=== PATIENT | female | born 2000 | race African-American/Black ===

== ENCOUNTER 2024-05-02 20:41 | Emergency (ER) | payer OTHER | END 2024-05-02 21:19 | LOC: CSHERS 20:41 | DX: Z53.21 Procedure and treatment not carried out due to patient leaving prior to being seen by health care provider (principal) ==

== ENCOUNTER 2025-05-20 15:58 | Emergency (ER) | payer MEDICAID, OTHER ==
[2025-05-20 17:30] LABS: #Basophils Less than 0.03 10x3/uL (0.0-0.2); #Eosinophils 0.15 10x3/uL (0.0-0.5); #Monocytes 0.73 10x3/uL (0.0-1.1); #Neutrophils 5.58 10x3/uL (1.5-8.4); %Basophils 0.2 % (0.0-2.0); %Eosinophils 1.8 % (0.0-6.0); %Lymphocytes 21.4 % (18.0-47.0); %Monocytes 8.8 % (0.0-10.0); %Neutrophils 67.1 % (40.0-75.0); Hematocrit 35.8 % (34.9-44.5); Hemoglobin 11.2 g/dL (12.0-15.5); Mean Corpuscular Hemoglobin 24.2 pg (27.0-33.0); Mean Corpuscular Volume 77.3 fL (81.6-98.3); Platelet Count 284 10x3/uL (150-450); Red Blood Cell (RBC) Count 4.63 10x6/uL (3.90-5.03); White Blood Cell (WBC) Count 8.32 10x3/uL (3.5-10.5)
[2025-05-20 17:35] LABS: Glucose, Urine (Dipstick) Normal (Negative); Leukocyte Negative (Negative); Protein, Urine (Dipstick) 30 mg/dl (Neg-Trace); Specific Gravity, Urine 1.030 (1.005-1.030)
[2025-05-20 17:46] LABS: Bacteria/HPF 1+ HPF (None Seen); CAUTI Indications for Culture Pelvic or flank pain; Mucous/LPF 1+ LPF (<2+); RBC/HPF None Seen HPF (0-3); WBC/HPF None Seen HPF (0-3)
[2025-05-20 17:47] LABS: Urine Culture Reflex No No
[2025-05-20 17:59] LABS: ALT (SGPT) 24 U/L (Less than 34); AST (SGOT) 31 U/L (11-34); Albumin 3.7 g/dL (3.1-4.5); Alkaline Phosphatase 42 U/L (40-110); Anion Gap 10 mmol/L (10-20); BUN (Urea Nitrogen) 7 mg/dL (7.0-18.7); Bilirubin, Total 0.2 mg/dL (0.3-1.2); Calc. Creatinine Clearance 0 mL/min (70-130); Calcium 9.6 mg/dL (7.8-10.44); Carbon Dioxide 25 mmol/L (22-29); Chloride 105 mmol/L (98-107); Globulin 3.7 g/dL (2.4-3.5); Glucose 86 mg/dL (70-105); Potassium 4.3 mmol/L (3.5-5.1); Sodium 136 mmol/L (136-145)
[2025-05-21 14:11] LABS: Chlamydia by PCR, Vaginal Swab Not Detected (NotDetected); GC by PCR, Vaginal Swab Not Detected (NotDetected)
== END 2025-05-20 20:38 | disposition home or self-care (01) ==
LOC: CSHERS 15:58
DX: O99.891 Other specified diseases and conditions complicating pregnancy (principal); N76.0 Acute vaginitis; B96.89 Other specified bacterial agents as the cause of diseases classified elsewhere; R10.2 Pelvic and perineal pain; K59.00 Constipation, unspecified; O10.912 Unspecified pre-existing hypertension complicating pregnancy, second trimester; Z3A.15 15 weeks gestation of pregnancy
CPT/HCPCS: 36415; 76815; 80053; 81001; 84702; 85025; 87081; 87086; 87428; 87430; 87480; 87491; 87510; 87591; 87660; 99284

== ENCOUNTER 2025-07-10 19:21 | Observation (INO) | payer MEDICAID, OTHER ==
[2025-07-10 21:32] VITALS: BMI 46.4
[2025-07-11] MEDS: Calcium Carbonate 500 MG ChewTAB PO PRN (06:47)
[2025-07-11] MEDS ORDERED: Acetaminophen 325 MG TAB PO PRN (09:36)
[2025-07-11 10:16] LABS: #Basophils 0.03 10x3/uL (0.0-0.2); #Eosinophils 0.07 10x3/uL (0.0-0.5); #Monocytes 0.75 10x3/uL (0.0-1.1); #Neutrophils 6.94 10x3/uL (1.5-8.4); %Basophils 0.3 % (0.0-2.0); %Eosinophils 0.7 % (0.0-6.0); %Lymphocytes 18.6 % (18.0-47.0); %Monocytes 7.7 % (0.0-10.0); %Neutrophils 71.7 % (40.0-75.0); Hematocrit 36.3 % (34.9-44.5); Hemoglobin 11.3 g/dL (12.0-15.5); Mean Corpuscular Hemoglobin 24.5 pg (27.0-33.0); Mean Corpuscular Volume 78.7 fL (81.6-98.3); Platelet Count 297 10x3/uL (150-450); Red Blood Cell (RBC) Count 4.61 10x6/uL (3.90-5.03); White Blood Cell (WBC) Count 9.69 10x3/uL (3.5-10.5)
[2025-07-11 10:29] LABS: Glucose, Urine (Dipstick) Normal (Negative); Leukocyte Negative (Negative); Protein, Urine (Dipstick) Negative (Neg-Trace); Specific Gravity, Urine 1.010 (1.005-1.030)
[2025-07-11 10:32] LABS: ALT (SGPT) 16 U/L (Less than 34); AST (SGOT) 20 U/L (11-34); Albumin 3.2 g/dL (3.1-4.5); Alkaline Phosphatase 57 U/L (40-110); Anion Gap 12 mmol/L (10-20); BUN (Urea Nitrogen) 7 mg/dL (7.0-18.7); Bilirubin, Total 0.2 mg/dL (0.3-1.2); Calc. Creatinine Clearance 248 mL/min (70-130); Calcium 8.9 mg/dL (7.8-10.44); Carbon Dioxide 23 mmol/L (22-29); Chloride 105 mmol/L (98-107); Globulin 3.8 g/dL (2.4-3.5); Glucose 96 mg/dL (70-105); Potassium 3.7 mmol/L (3.5-5.1); Sodium 136 mmol/L (136-145)
[2025-07-11 10:59] LABS: Bacteria/HPF Rare-Few HPF (None Seen); CAUTI Indications for Culture Dysuria,urgency,freq; Protein, Urine Random Quant Less than 10 mg/dL (1-14); RBC/HPF None Seen HPF (0-3); WBC/HPF 0-3 HPF (0-3)
[2025-07-11 11:01] LABS: Urine Culture Reflex No No
== END 2025-07-11 12:25 | disposition home or self-care (01) ==
LOC: CSHLD/OP 19:21 → EEVIPCON 21:04 → INTOOBSV 21:04 → CSHLD 21:04
PROVIDERS: ADMIT Student in an Organized Health Care Education/Training Program; ATTEND Student in an Organized Health Care Education/Training Program
DX: O36.8120 Decreased fetal movements, second trimester, not applicable or unspecified (principal); O99.891 Other specified diseases and conditions complicating pregnancy; R51.9 Headache, unspecified; R11.0 Nausea; O10.912 Unspecified pre-existing hypertension complicating pregnancy, second trimester; Z3A.22 22 weeks gestation of pregnancy; Z79.82 Long term (current) use of aspirin; Z79.899 Other long term (current) drug therapy
CPT/HCPCS: 36415; 80053; 81001; 82570; 84156; 85025; G0378

== ENCOUNTER 2025-07-21 09:51 | Inpatient (IN) | payer MEDICAID, OTHER ==
[2025-07-21 10:12] VITALS: BMI 48.2
[2025-07-21] MEDS ORDERED: Methylergonovine 0.2 MG/ML VIAL IM PRN ×2 (10:22→11:15)
[2025-07-21] MEDS ORDERED: Ondansetron PF 4 MG/2 ML Vial IVP PRN ×2 (10:22→11:15)
[2025-07-21] MEDS ORDERED: Acetaminophen 500 MG TAB PO PRN (10:22)
[2025-07-21] MEDS ORDERED: hydrALAZINE 20 MG/ML VIAL SLOW IVP PRN ×2 (10:22→11:15)
[2025-07-21] MEDS ORDERED: Carboprost 250 MCG/ML AMP IM PRN (10:22)
[2025-07-21] MEDS ORDERED: Tranexamic Acid 1,000 MG/10 ML VIAL IVP PRN (10:22)
[2025-07-21] MEDS ORDERED: Diphenoxylate HCl/Atropine Tablet PO PRN ×2 (10:22)
[2025-07-21] MEDS ORDERED: Bicitra 30 ML UDCUP PO PRN (10:22)
[2025-07-21] MEDS ORDERED: Famotidine/PF 20 mg/2ml Vial SLOW IVP PRN (10:22)
[2025-07-21] MEDS ORDERED: Oxytocin 30 units/NS 500 ML 500 ML IV SCH ×2 (10:30→11:15)
[2025-07-21 10:43] LABS: Hematocrit 35.1 % (34.9-44.5); Hemoglobin 11.1 g/dL (12.0-15.5); Mean Corpuscular Hemoglobin 24.8 pg (27.0-33.0); Mean Corpuscular Volume 78.3 fL (81.6-98.3); Platelet Count 320 10x3/uL (150-450); Red Blood Cell (RBC) Count 4.48 10x6/uL (3.90-5.03); White Blood Cell (WBC) Count 11.60 10x3/uL (3.5-10.5)
[2025-07-21] MEDS ORDERED: Methylergonovine 0.2 MG TAB PO PRN (11:15)
[2025-07-21] MEDS ORDERED: Lanolin Ointment 7 GM TUBE TOP PRN (11:15)
[2025-07-21] MEDS ORDERED: HYDROcodone/Acetaminophen 5/325 mg Tablet PO PRN (11:15)
[2025-07-21] MEDS ORDERED: diphenhydrAMINE 25 MG CAP PO PRN ×2 (11:15→11:18)
[2025-07-21 11:18] LABS: Analyzer IN Cardio CS NICU; RapidComm Collect By OR Nurse; pH (Cord, venous) 7.333 (7.250-7.350)
[2025-07-21] MEDS ORDERED: diphenhydrAMINE 50 MG/ML VIAL IM PRN (11:18)
[2025-07-21] MEDS ORDERED: diphenhydrAMINE 50 MG/ML VIAL IVP PRN (11:18)
[2025-07-21] MEDS ORDERED: Communication Order-Pharmacy FS PRN (11:30)
[2025-07-21 11:52] LABS: Syphilis Antibody Index 0.20 S/CO (<1.00 Non-Reactive)
[2025-07-21 11:54] LABS: Hep B Surf Ag - L&D Non-Reactive S/CO (NonReactive)
[2025-07-21] MEDS: HYDROmorphone HCl/0.9% NaCl/PF 30 ML IV SCH (12:10)
[2025-07-21] MEDS: Rocuronium Bromide 10 MG/ML (10ML VIAL) ONE (14:45)
[2025-07-21] MEDS: PROPOFOL 20 ML ONE (14:45)
[2025-07-21] MEDS: CEFAZOLIN 2 GM VIAL ONE (14:45)
[2025-07-21] MEDS: Lidocaine 1% PF 5 ML VIAL ONE (14:45)
[2025-07-21] MEDS: Oxytocin 10 UNITS/ML VIAL ONE (14:45)
[2025-07-21] MEDS: SUCCINYLCHOLINE/SOD CL,ISO/PF 200 MG/10 ML SYRINGE FS ONE (14:45)
[2025-07-21] MEDS: Azithromycin 500 MG VIAL ONE (14:45)
[2025-07-21 15:43] LABS: #Basophils Less than 0.03 10x3/uL (0.0-0.2); #Eosinophils 0.07 10x3/uL (0.0-0.5); #Monocytes 0.32 10x3/uL (0.0-1.1); #Neutrophils 14.67 10x3/uL (1.5-8.4); %Basophils 0.1 % (0.0-2.0); %Eosinophils 0.4 % (0.0-6.0); %Lymphocytes 5.4 % (18.0-47.0); %Monocytes 2.0 % (0.0-10.0); %Neutrophils 91.2 % (40.0-75.0); Hematocrit 37.2 % (34.9-44.5); Hemoglobin 11.5 g/dL (12.0-15.5); Mean Corpuscular Hemoglobin 24.2 pg (27.0-33.0); Mean Corpuscular Volume 78.3 fL (81.6-98.3); Platelet Count 346 10x3/uL (150-450); Red Blood Cell (RBC) Count 4.75 10x6/uL (3.90-5.03); White Blood Cell (WBC) Count 16.09 10x3/uL (3.5-10.5)
[2025-07-21 15:55] LABS: ALT (SGPT) 12 U/L (Less than 34); AST (SGOT) 34 U/L (11-34); Albumin 3.0 g/dL (3.1-4.5); Alkaline Phosphatase 61 U/L (40-110); Anion Gap 12 mmol/L (10-20); BUN (Urea Nitrogen) 7 mg/dL (7.0-18.7); Bilirubin, Total 0.2 mg/dL (0.3-1.2); Calc. Creatinine Clearance 267 mL/min (70-130); Calcium 8.7 mg/dL (7.8-10.44); Carbon Dioxide 19 mmol/L (22-29); Chloride 108 mmol/L (98-107); Globulin 3.8 g/dL (2.4-3.5); Glucose 88 mg/dL (70-105); Potassium 4.0 mmol/L (3.5-5.1); Sodium 135 mmol/L (136-145)
[2025-07-21] MEDS: Ibuprofen 800 MG TAB PO SCH (16:56)
[2025-07-21 17:14] LABS: Protein, Urine Random Quant 10.0 mg/dL (1-14)
[2025-07-21 17:24] LABS: HIV (1/2) Antibody/Antigen Non-Reactive (NonReactive); HIV 1/2 INDEX 0.22 S/CO (<1.00)
[2025-07-21] MEDS: Ketorolac Tromethamine 30 MG (1 mL) VIAL IVP PRN (19:26)
[2025-07-21] MEDS: Ondansetron PF 4 MG/2 ML Vial IVP PRN (20:11)
[2025-07-21] MEDS: Ferrous Sulfate 325 MG TAB PO SCH (20:11)
[2025-07-21] MEDS ORDERED: Ibuprofen 800 MG TAB PO SCH (22:00)
[2025-07-22 05:38] LABS: Hematocrit 31.7 % (34.9-44.5); Hemoglobin 10.2 g/dL (12.0-15.5); Mean Corpuscular Hemoglobin 24.7 pg (27.0-33.0); Mean Corpuscular Volume 76.8 fL (81.6-98.3); Platelet Count 293 10x3/uL (150-450); Red Blood Cell (RBC) Count 4.13 10x6/uL (3.90-5.03); White Blood Cell (WBC) Count 17.68 10x3/uL (3.5-10.5)
[2025-07-22] MEDS: HYDROcodone/Acetaminophen 5/325 mg Tablet PO PRN ×2 (09:39→21:02)
[2025-07-22] MEDS: Simethicone Chewable 80 MG TAB PO PRN (09:39)
[2025-07-22] MEDS: Enoxaparin 40 MG (0.4 mL) SYRINGE SC SCH (11:35)
[2025-07-22] MEDS: Bisacodyl 10 MG SUPP PR PRN (21:02)
[2025-07-23] MEDS ORDERED: Ibuprofen 800 MG TAB PO PRN (00:14)
[2025-07-23 01:44] LABS: #Basophils 0.03 10x3/uL (0.0-0.2); #Eosinophils Less than 0.03 10x3/uL (0.0-0.5); #Monocytes 0.97 10x3/uL (0.0-1.1); #Neutrophils 9.95 10x3/uL (1.5-8.4); %Basophils 0.2 % (0.0-2.0); %Eosinophils 0.2 % (0.0-6.0); %Lymphocytes 11.3 % (18.0-47.0); %Monocytes 7.7 % (0.0-10.0); %Neutrophils 79.0 % (40.0-75.0); Hematocrit 29.2 % (34.9-44.5); Hemoglobin 9.3 g/dL (12.0-15.5); Mean Corpuscular Hemoglobin 24.7 pg (27.0-33.0); Mean Corpuscular Volume 77.5 fL (81.6-98.3); Platelet Count 319 10x3/uL (150-450); Red Blood Cell (RBC) Count 3.77 10x6/uL (3.90-5.03); White Blood Cell (WBC) Count 12.59 10x3/uL (3.5-10.5)
[2025-07-23] MEDS: Ibuprofen 800 MG TAB PO SCH (05:16)
[2025-07-23] MEDS: Acetaminophen 325 MG TAB PO PRN (08:41)
[2025-07-23 09:44] LABS: #Basophils Less than 0.03 10x3/uL (0.0-0.2); #Eosinophils 0.04 10x3/uL (0.0-0.5); #Monocytes 1.05 10x3/uL (0.0-1.1); #Neutrophils 8.01 10x3/uL (1.5-8.4); %Basophils 0.2 % (0.0-2.0); %Eosinophils 0.3 % (0.0-6.0); %Lymphocytes 19.1 % (18.0-47.0); %Monocytes 9.1 % (0.0-10.0); %Neutrophils 69.7 % (40.0-75.0); Hematocrit 29.5 % (34.9-44.5); Hemoglobin 9.4 g/dL (12.0-15.5); Mean Corpuscular Hemoglobin 24.7 pg (27.0-33.0); Mean Corpuscular Volume 77.6 fL (81.6-98.3); Platelet Count 313 10x3/uL (150-450); Red Blood Cell (RBC) Count 3.80 10x6/uL (3.90-5.03); White Blood Cell (WBC) Count 11.50 10x3/uL (3.5-10.5)
[2025-07-23] MEDS ORDERED: Iopamidol 300 61% 100 ML VIAL FS ONE (12:14)
[2025-07-23] MEDS: Dexamethasone 10 MG/ML VIAL ONE (17:46)
[2025-07-23] MEDS: Oxytocin 10 UNITS/ML VIAL ONE (17:46)
[2025-07-23] MEDS: SUGAMMADEX SODIUM 200 MG/2 ML VIAL ONE (17:46)
[2025-07-23] MEDS: Tranexamic Acid 1,000 MG/10 ML VIAL ONE (17:46)
[2025-07-24 11:31] VITALS: BP 127/76; TEMP 97.8
== END 2025-07-24 13:35 | disposition home or self-care (01) | DRG 786 ==
LOC: CSHLD/OP 09:51 → CSHLD 10:45 → CSHPP 14:35
PROVIDERS: ADMIT Family Medicine; ATTEND Family Medicine
PROC: 10D00Z1 Extraction of Products of Conception, Low, Open Approach (ICD-10-PCS; principal; 2025-07-21)
DX: O60.12X0 Preterm labor second trimester with preterm delivery second trimester, not applicable or unspecified (principal); O34.32 Maternal care for cervical incompetence, second trimester; Z37.0 Single live birth; Z3A.24 24 weeks gestation of pregnancy; O32.1XX0 Maternal care for breech presentation, not applicable or unspecified; Z88.2 Allergy status to sulfonamides; Z88.8 Allergy status to other drugs, medicaments and biological substances
CPT/HCPCS: 36415; 36416; 74177; 80053; 82570; 82805; 84156; 85025; 85027; 85461; 86780; 86850; 86900; 86901; 87340; 87389; 88307; 90384; 96372; 99285; J0456; J1100; J1650; J1885; J2405; J2590; J2704; Q9967